=== PATIENT | male | born 1980 | race Two or more races ===

== ENCOUNTER → 2025-04-02 | Outpatient (CLI) | payer OTHER, SELFPAY | END | disposition home or self-care (01) | LOC: LABSPEC 17:33 | PROVIDERS: Referring Provider Otolaryngology; Visit Provider Otolaryngology | DX: J32.8 Other chronic sinusitis (principal) | CPT/HCPCS: 87070; 87205 ==

== ENCOUNTER → 2025-07-13 | Outpatient (CLI) | payer OTHER, SELFPAY ==
--- NOTE | 2025-07-13 10:28 | MRI_ITS ---
EXAM: MRI maxillofacial without and with contrast CLINICAL HISTORY: Left-sided facial pain COMPARISON: CT examination on 10/03/2024 TECHNIQUE: Maxillofacial MRI performed without and with 17 cc of Clariscan. FINDINGS: Normal craniovertebral junction. No Chiari deformity. No pathologic diffusion restriction. No hydrocephalus. Normal submandibular glands. Normal mandibular marrow signal. Symmetric muscles of mastication. Normal nasopharynx. The brain is unremarkable. There is no hydrocephalus. There is no pathologic flow voids. The brainstem is unremarkable. There is no intracranial demyelination. Normal oral cavity and tongue base. Left and right orbit unremarkable. Prior sinus surgery suspected. No maxillary sinus masses or air-fluid levels. No nasopharyngeal asymmetry. Normal parotid glands. Thin section imaging of the skull base demonstrates normal trigeminal bundles and Meckel's cave bilaterally. No asymmetry in the region of foramen ovale. Normal pterygoid palatine fossa. Minimal left frontoethmoidal mucosal thickening identified. Normal left orbital floor. Postcontrast imaging demonstrates no abnormal orbital enhancement. No abnormal cavernous sinus enhancement. For some reason the axial postcontrast images are not fat saturated which limits their utility. Symmetric foramen ovale. No abnormal infraorbital nerve enhancement. MRI/Orbit Face Neck W/WO Contrast IMPRESSION: No significant pathologic findings. Prior sinus surgery Reading Location[facility]
== END | disposition home or self-care (01) ==
LOC: MRI 10:24
PROVIDERS: PCP Family Medicine; Referring Provider Otolaryngology; Visit Provider Otolaryngology
DX: G50.1 Atypical facial pain (principal)
CPT/HCPCS: 70543; A9575; A4216